=== PATIENT | female | born 1960 | race Native Hawaiian/Other Pacific Islander ===

== ENCOUNTER → 2017-10-17 | Outpatient (CLI) | payer OTHER ==
--- NOTE | 2017-10-17 12:29 | XR ---
EXAMINATION TYPE: XR chest 2V DATE OF EXAM: 10/17/2017 COMPARISON: NONE HISTORY: Chest pain TECHNIQUE: Frontal and lateral views of the chest are obtained. FINDINGS: There is no focal air space opacity, pleural effusion, or pneumothorax seen. The cardiac silhouette size is within normal limits. The osseous structures are intact. Minimal multilevel dege nerative changes of the thoracic spine are noted. IMPRESSION: No acute cardiopulmonary process.
--- NOTE | 2017-10-17 12:50 | XR ---
EXAMINATION TYPE: XR cervical spine comp DATE OF EXAM: 10/17/2017 TECHNIQUE: Frontal, lateral, oblique, swimmers, and open mouth view of the cervical spine are obtaine d. HISTORY: M542,R05 cervicalgia,cough COMPARISON: None FINDINGS: The cervical spine is visualized from C1 thru the top of C5 level, it is satisfactory in a lignment without evidence of acute fracture or dislocation. The pre-vertebral soft tissue appears wi thin normal limits. The C1-C2 articulation is within normal limits on the open mouth view. Mild mult ilevel degenerative disc disease is most pronounced at C4 through C6. There is at least mild neural f oraminal narrowing at C5-C6 on the right. Remainder of the neural foramen are radiographically patent . Straightening of the usual cervical lordosis is noted. IMPRESSION: 1. No acute fracture or dislocation is seen in the cervical spine. 2. Mild multilevel degenerative disc disease resulting in at least mild neural foraminal narrowing at C5-C6 on the right. 3. Straightening of the usual cervical lordosis that may relate to muscular spasm or patient position ing.
== END | disposition home or self-care (01) ==
LOC: RADXRYALE 11:23
PROVIDERS: ATTEND Internal Medicine
DX: M99.71 Connective tissue and disc stenosis of intervertebral foramina of cervical region (principal); M50.321 Other cervical disc degeneration at C4-C5 level; R05 Cough
CPT/HCPCS: 71046; 72050

== ENCOUNTER → 2017-11-20 | Outpatient (CLI) | payer OTHER ==
--- NOTE | 2017-11-22 08:23 | MM ---
Reason for exam: screening (asymptomatic). Last mammogram was performed 2 years and 1 month ago. History: Benign US left guided VAD of the left breast, December 30, 2008. Benign US left guided VAD of the left breast, December 30, 2008. Physical Findings: A clinical breast exam by your physician is recommended on an annual basis and results should be correlated with mammographic findings. MG Screening Mammo w CAD Bilateral CC and MLO view(s) were taken. Prior study comparison: October 22, 2015, bilateral MG screening mammo w CAD. June 30, 2010, bilateral digital screening mammogram. The breast tissue is heterogeneously dense. This may lower the sensitivity of mammography. Previous mammotome biopsy in the left breast x 2. There is chronic nodularity bilaterally. No significant changes when compared with prior studies. ASSESSMENT: Benign, BI-RAD 2 RECOMMENDATION: Routine screening mammogram of both breasts in 1 year.
== END | disposition home or self-care (01) ==
LOC: RADMAMWWP 11:15
PROVIDERS: ATTEND Internal Medicine
DX: Z12.31 Encounter for screening mammogram for malignant neoplasm of breast (principal)
CPT/HCPCS: 77067

== ENCOUNTER → 2017-12-20 | Outpatient (CLI) | payer OTHER ==
--- NOTE | 2017-12-20 21:35 | US ---
EXAMINATION TYPE: US pelvis complete transvag DATE OF EXAM: 12/20/2017 COMPARISON: None CLINICAL HISTORY: 57-year-old female N95.0 Postmenopausal bleeding. UNDERTAKER ASSISTANT x one month ago. Patient sta shruti her last menses was 1 year ago. TECHNIQUE: Transabdominal sonographic images of the pelvis were acquired. Transvaginal sonographic i mages were medically necessary to better assess the following anatomy: Uterus, endometrium and ovarie s Date of LMP: UNDERTAKER ASSISTANT, FINDINGS: EXAM MEASUREMENTS: Uterus: 8.9 x 5.3 x 4.4 cm Endometrial Stripe: 3.6 mm 1. Uterus: Anteverted. The myometrium is mildly heterogeneous. No dominant fibroid is seen. Cervic al nabothian cysts are demonstrated. 2. Endometrium: Difficult to clearly delineate but estimated at 3.6 mm. 3. Right Ovary: Obscured by overlying bowel gas both transabd and transvag 4. Left Ovary: Obscured by overlying bowel gas both transabd and transvag 5. Bilateral Adnexa: wnl 6. Posterior cul-de-sac: no free fluid IMPRESSION: 1. Technically difficult to delineate the endometrial stripe, estimated at 3.6 mm. 2. Neither ovary could be visualized. 3. No pelvic free fluid.
== END | disposition home or self-care (01) ==
LOC: RADUSWWP 12:18
PROVIDERS: ATTEND Internal Medicine
DX: N95.0 Postmenopausal bleeding (principal)
CPT/HCPCS: 76830; 76856

== ENCOUNTER → 2018-01-11 | Outpatient (CLI) | payer OTHER ==
--- NOTE | 2018-01-11 14:48 | XR ---
EXAMINATION TYPE: XR abdomen 1V DATE OF EXAM: 01/11/2018 1:00 PM CLINICAL HISTORY: Right flank pain for one month. History of nephrolithiasis. TECHNIQUE: Single supine KUB image of the abdomen is obtained. COMPARISON: None. FINDINGS: There is a mild levoscoliosis of the lumbar spine. Numerous phleboliths are seen within the pelvis. Probable artery 3 mm left renal calculus is seen. Renal shadows are partially obscured by ov erlying colonic bowel gas and stool. Scattered gas is seen in non-distended small bowel loops. Gas an d fecal material is seen in non-distended colon. Mild femoral acetabular arthropathy is present. IMPRESSION: Probable 3 mm left renal calculus. Renal shadows are partially obscured by overlying colo neo stool. No additional renal calculi are seen.
== END | disposition home or self-care (01) ==
LOC: RADXRYALE 12:49
PROVIDERS: ATTEND Internal Medicine
DX: N20.0 Calculus of kidney (principal)
CPT/HCPCS: 74018

== ENCOUNTER → 2018-01-24 | Outpatient (CLI) | payer OTHER ==
--- NOTE | 2018-01-24 14:16 | US ---
EXAMINATION TYPE: US kidneys/renal and bladder DATE OF EXAM: 01/24/2018 COMPARISON: NONE CLINICAL HISTORY: N20.0 Calculus of kidney. EXAM MEASUREMENTS: Right Kidney: 12.3 x 4.6 x 5.6 cm Left Kidney: 11.9 x 4.6 x 4.3cm Right Kidney: echogenic foci seen, possible stone(s) Left Kidney: No hydronephrosis or masses seen Bladder: wnl Bilateral Jets seen: Yes There is no evidence for hydronephrosis at this point in time. No masses are identified. The urinar y bladder is anechoic. Bilateral ureteral jets are seen. IMPRESSION: Suspect right-sided nonobstructing nephrolithiasis.
== END | disposition home or self-care (01) ==
LOC: RADUSWWP 13:32
PROVIDERS: ATTEND Internal Medicine
DX: N20.0 Calculus of kidney (principal)
CPT/HCPCS: 76770

== ENCOUNTER → 2018-02-13 | Outpatient (CLI) | payer OTHER ==
--- NOTE | 2018-02-13 11:32 | XR ---
EXAMINATION TYPE: XR foot complete LT DATE OF EXAM: 02/13/2018 CLINICAL HISTORY: pain TECHNIQUE: Frontal, lateral and oblique images of the left foot are obtained. COMPARISON: None. FINDINGS: There is no acute fracture/dislocation evident. The joint spaces appear within normal lee its. The overlying soft tissue appears unremarkable. Plantar calcaneal spur noted. IMPRESSION: There is no acute fracture or dislocation. ICD 10 NO FRACTURE, INITIAL EVALUATION
== END | disposition home or self-care (01) ==
LOC: RADXRYALE 10:55
PROVIDERS: ATTEND Internal Medicine
DX: M79.672 Pain in left foot (principal)

== ENCOUNTER → 2022-12-29 | Outpatient (CLI) | payer OTHER ==
--- NOTE | 2022-12-30 19:31 | MM ---
Reason for Exam: Screening (asymptomatic). Last mammogram was performed 5 year(s) and 1 month(s) ago. Patient History: Menarche at age 15. First Full-Term at age 19. Postmenopausal. 12/30/2008, Benign Core Biopsy on the left side. 12/30/2008, Benign Core Biopsy on the left side. Risk Values: Minerva 5 year model risk: 1.0%. NCI Lifetime model risk: 5.5%. Prior Study Comparison: 06/30/2010 Bilateral Screening Mammogram, [facility]. 10/22/2015 Bilateral Screening Mammogram, [facility]. 11/20/2017 Bilateral Screening Mammogram, [facility]. Tissue Density: The breast tissue is heterogeneously dense. This may lower the sensitivity of mammography. Findings: Analyzed By CAD. Coil clip upper outer quadrant left breast corresponding to previously biopsied nodularity. Additional ribbon clip inner left breast. Benign oil cyst calcifications are present on both sides. There is no suspicious group of microcalcifications or new suspicious mass in either breast. Overall Assessment: Benign, BI-RAD 2 Management: Screening Mammogram of both breasts in 1 year. . Patient should continue monthly self-breast exams. A clinical breast exam by your physician is recommended on an annual basis. This exam should not preclude additional follow-up of suspicious palpable abnormalities. Note on Minerva scores and lifetime risk: 1. A Minerva score greater than 3% is considered moderate risk. If this is the case, consider specialist referral to assess eligibility for a risk reducing agent. 2. If overall lifetime risk for the development of breast cancer is 20% or higher, the patient may qualify for future screening with alternating mammogram and breast MRI. Electronically signed and approved by: Bridger Mario M.D. Radiologist
== END | disposition home or self-care (01) ==
LOC: RADMAMWWP 13:29
PROVIDERS: ATTEND Family Medicine
DX: Z12.31 Encounter for screening mammogram for malignant neoplasm of breast (principal); Z78.0 Asymptomatic menopausal state
CPT/HCPCS: 77063; 77067

== ENCOUNTER → 2023-04-17 | Outpatient (CLI) | payer OTHER ==
--- NOTE | 2023-04-18 00:23 | MR ---
EXAMINATION TYPE: MR knee LT wo con DATE OF EXAM: 04/17/2023 COMPARISON: NONE HISTORY: Left knee pain and swelling since August 21, 2022. TECHNIQUE: Multiplanar, multisequence images of the knee is performed without IV contrast. FINDINGS: MEDIAL MENISCUS: Anterior horn is intact without tear. Increased signal with horizontal and oblique c omponent posterior horn appears to extend to inferior articular surface on coronal images LATERAL MENISCUS: Anterior and posterior horns are intact without tear. CRUCIATE LIGAMENTS: The anterior and posterior cruciate ligaments are intact and unremarkable. COLLATERAL LIGAMENTS: The medial collateral ligament and lateral collateral ligament complex are inta ct. Some increased signal and thickening of the distal aspect deep fibers of the medial collateral li gament. EXTENSOR MECHANISM: Visualized quadriceps and patellar tendons are intact. EFFUSION: Moderate-size suprapatellar joint effusion. POPLITEAL CYST: No popliteal/see cyst. TRICOMPARTMENT SPACES: Mild to moderate tricompartment joint space loss and spurring. CARTILAGE: Some cartilaginous loss posterior lateral aspect of the distal medial femoral condyle. BONE MARROW SIGNAL: Slight vague area of increased T2 signal involving the posterior lateral aspect o f the distal medial femoral condyle near sagittal image 22 and axial image 15. OTHER: No additional significant abnormality is appreciated. IMPRESSION: 1. At least intrasubstance but suspected full-thickness tear posterior horn of medial meniscus. 2. Deep distal MCL sprain injury presumed chronic. 3. Kasy-iy-puyyhzdd tricompartment degenerative changes most likely on basis of osteoarthritis as det artur above.
== END | disposition home or self-care (01) ==
LOC: RADMRIMAIN 07:54
PROVIDERS: ATTEND Family Medicine
DX: S83.242A Other tear of medial meniscus, current injury, left knee, initial encounter (principal); M17.12 Unilateral primary osteoarthritis, left knee

== ENCOUNTER 2023-04-28 10:09 | Day surgery (SDC) | payer OTHER ==
[2023-04-26 11:24] VITALS: BMI 38.7
[~2023-04-28 10:09] MED LIST: LACTATED RINGERS 1,000 ML IV SCH
[2023-04-28 11:29] VITALS: RESP 16; TEMP 97.8
[2023-04-28 11:34] LABS: Glucose,Whole Blood 91 mg/dL (70-110)
[2023-04-28] MEDS ORDERED: PROPOFOL 10 MG/ML 20 ML VIAL IV ONE (12:18)
--- NOTE | 2023-04-28 12:35 | P.PCN ---
Date of Procedure: 04/28/23 Procedure(s) Performed: BRIEF HISTORY: Patient is a 63-year-old pleasant female scheduled for an elective colonoscopy as a part of screening for colon cancer. PROCEDURE PERFORMED: Colonoscopy. PREOPERATIVE DIAGNOSIS: Screening for colon cancer. IV sedation per Anesthesia. PROCEDURE: After informed consent was obtained, the patient, was brought into the endoscopy unit. IV sedation was administered by Anesthesia under continuous monitoring. Digital rectal examination was normal. Initially the Olympus CF-160 flexible video colonoscope was then inserted in the rectum, gradually advanced into the cecum without any difficulty. Careful examination was performed as the scope was gradually being withdrawn. Ileocecal valve and the appendiceal orifice were visualized and appeared normal. Prep was excellent. Mucosa of the cecum, ascending colon, transverse colon, descending colon, sigmoid colon, and rectum appeared normal. Scattered sigmoid diverticulosis. Retroflexion was performed in the rectum and small internal hemorrhoids. were seen. The patient tolerated the procedure well. IMPRESSION: Normal-appearing colon from rectum to cecum with no evidence of colorectal neoplasia Scattered sigmoid diverticula Small internal hemorrhoids RECOMMENDATIONS: Findings of this examination were discussed with the patient as well as family. She was advised to have a repeat screening colonoscopy in 10 years..
[2023-04-28 12:53] VITALS: BP 117/79; PULSE 77
== END 2023-04-28 13:14 | disposition home or self-care (01) ==
LOC: ORWHC2ENDO 10:09
PROVIDERS: ATTEND Internal Medicine Gastroenterology
DX: Z12.11 Encounter for screening for malignant neoplasm of colon (principal); K57.30 Diverticulosis of large intestine without perforation or abscess without bleeding; K64.8 Other hemorrhoids; E78.5 Hyperlipidemia, unspecified; G47.33 Obstructive sleep apnea (adult) (pediatric); E11.9 Type 2 diabetes mellitus without complications; F17.210 Nicotine dependence, cigarettes, uncomplicated; Z79.85 Long-term (current) use of injectable non-insulin antidiabetic drugs; Z79.84 Long term (current) use of oral hypoglycemic drugs; Z79.899 Other long term (current) drug therapy; Z98.890 Other specified postprocedural states
CPT/HCPCS: 45378; J2704

== ENCOUNTER → 2023-06-15 | Outpatient (CLI) | payer OTHER | LOC: 3 N SLEEP 10:52 | PROVIDERS: ATTEND Internal Medicine | DX: G47.33 Obstructive sleep apnea (adult) (pediatric) (principal); E66.9 Obesity, unspecified; I10 Essential (primary) hypertension; E11.9 Type 2 diabetes mellitus without complications; K21.9 Gastro-esophageal reflux disease without esophagitis; E78.5 Hyperlipidemia, unspecified; F17.200 Nicotine dependence, unspecified, uncomplicated; Z68.39 Body mass index [BMI] 39.0-39.9, adult; Z98.51 Tubal ligation status; Z79.899 Other long term (current) drug therapy; Z79.85 Long-term (current) use of injectable non-insulin antidiabetic drugs; Z79.84 Long term (current) use of oral hypoglycemic drugs | CPT/HCPCS: 99211 ==

== ENCOUNTER → 2023-06-15 | Outpatient (CLI) | payer OTHER ==
--- NOTE | 2023-06-15 11:51 | P.SLEEP ---
History of Present Illness DATE: 06/15/2023 CONSULTATION/NEW PATIENT EVALUATION HISTORY OF PRESENT ILLNESS/SLEEP-WAKE EVALUATION: 63-year-old lady had been evaluated in the sleep center for possible obstructive sleep apnea hypopnea syndrome. SLEEP SCHEDULE: Usually sleep schedule from 10:30 PM to 5 AM on weekdays from 11 PM to 6 AM on weekend. FALLING ASLEEP: Patient may have difficulties with falling asleep. DURING SLEEP: Patient has loud snoring, awakenings from sleep 2 times with nocturia, choking and grinding teeth. No history of hypnogogical hallucinations, sleep paralysis, or cataplexy. DURING THE DAY/WAKE STATE: In the morning patient wake up tired, has difficulties to pay attention, has problems with memory, concentration. [place] sleepiness scale is 4. The patient doesn't take naps. PAST MEDICAL HISTORY: Hypertension, diabetes mellitus, acid reflux, hyperlipidemia. PAST SURGICAL HISTORY: Tubal ligation. MEDICATIONS: Lisinopril 2.5 mg once a day, meloxicam 15 mg once a day, metformin. SOCIAL HISTORY: Positive for smoking for about 40 pack years quit 4 years ago, alcohol consumption occasional. FAMILY HISTORY: Hypertension, heart problems, asthma, sleep apnea, thyroid problems. REVIEW OF SYSTEMS: Loud snoring, multiple awakenings from sleep with episodes of choking. No fevers. No double vision. No recent chest pain. No shortness of breath. No abdominal pain. No bleeding episodes. No blood in urine. No seizure episodes. PHYSICAL EXAMINATION: GENERAL: A pleasant patient without any distress. VITAL SIGNS: BP 116/71 , HR 86 , RR 16 , weight 209.8 pounds, height 5 foot 1-1/3 inches, body mass index 39.1, temperature 98.8, oxygen saturation at room air 96% . HEENT: PERRLA, EOMI. Evaluation of oropharynx showed tongue protrudes midline, low position of soft palate Mallampati 4. NECK: Supple. No JVD. Thyroid is not palpable. 17 inches in circumference. LUNGS: Clear to percussion and to auscultation. Good air exchange. No wheezing or rhonchi. HEART: S1, S2 regular. No murmurs, gallops or rubs. ABDOMEN: Soft and nontender. Bowel sounds are present. No organomegaly appreciated. Slightly obese. EXTREMITIES: No clubbing or cyanosis. CRANE HOIST OR LIFT OPERATOR: Awake, alert, and oriented x3. Cranial nerves 2 to 7 intact. There is no fasciculation or atrophy noted. No focal deficits observed. ASSESSMENT: 1. Loud snoring, multiple awakenings from sleep with episodes of choking, extremely low position of soft palate Mallampati 4, wide neck 17 inches in circumference. Obstructive sleep apnea hypopnea syndrome. 2. Obesity, BMI 39.1. 3. Hypertension. 4. Diabetes mellitus. 5 acid reflux. 6 . Hyperlipidemia. 7. Status post tubal ligation. PLAN: 1. Polysomnography for evaluation of patient's breathing during sleep. 2. CPAP/BiPAP titration if sleep study confirms obstructive sleep apnea- hypopnea syndrome. 3. Preferable position during sleep on the side. 4. No driving if patient feels any sleepiness. Patient is aware of civil and criminal liability for unsafe driving. 5. Sleep hygiene with regular sleep time for at least 7.5-8 hours. 6. Watching and losing weight. Thank you very much for referring this patient for consultation. Sincerely, Roldan Jones MD, PhD, FAASM. Diplomat of [place] [employer], Sleep Medicine Board by [employer] Corporate Manager of [facility] [place] Past Medical History Past Medical History: No Reported History History of Any Multi-Drug Resistant Organisms: None Reported Past Surgical History: No Surgical Hx Reported Past Psychological History: No Psychological Hx Reported Past Alcohol Use History: Occasional Past Drug Use History: None Reported Medications and Allergies Home Medications Medication Instructions Recorded Confirmed Type Atorvastatin [Lipitor] 10 mg PO DAILY 04/26/23 04/26/23 History Diclofenac Sodium Gel [Voltaren 100 gm TOPICAL BID 04/26/23 04/26/23 History Gel] Dulaglutide [Trulicity] 0.75 mg SQ WEEKLY 04/26/23 04/26/23 History Fluticasone Nasal [place] [Flonase 2 spray EA NOSTRIL DAILY 04/26/23 04/26/23 History Nasal [place]] L.acidoph,Paracasei, B.lactis 1 each PO DAILY 04/26/23 04/26/23 History [Probiotic] Magnesium 250 mg PO DAILY 04/26/23 04/26/23 History Meloxicam [Mobic] 15 mg PO DAILY 04/26/23 04/26/23 History Terbinafine [LamISIL] 250 mg PO HS 04/26/23 04/26/23 History lisinopriL [Zestril] 2.5 mg PO DAILY 04/26/23 04/26/23 History metFORMIN HCL 500 mg PO DAILY 04/26/23 04/26/23 History Allergies Allergy/AdvReac Type Severity Reaction Status Date / Time No Known Allergies Allergy Verified 04/26/23 11:16 Sleep Note - Sleep Note Sleep Note: Temperature: Pulse Rate: Respiratory Rate: Blood Pressure: SpO2: Height: Weight: BMI: Neck Circumference:
== END ==
LOC: 3 N SLEEP 10:42
PROVIDERS: ATTEND Internal Medicine
DX: G47.33 Obstructive sleep apnea (adult) (pediatric) (principal); E66.9 Obesity, unspecified; I10 Essential (primary) hypertension; E11.9 Type 2 diabetes mellitus without complications; K21.9 Gastro-esophageal reflux disease without esophagitis; E78.5 Hyperlipidemia, unspecified; Z68.39 Body mass index [BMI] 39.0-39.9, adult; Z98.51 Tubal ligation status; Z87.891 Personal history of nicotine dependence; Z79.899 Other long term (current) drug therapy; Z79.84 Long term (current) use of oral hypoglycemic drugs; Z79.85 Long-term (current) use of injectable non-insulin antidiabetic drugs
CPT/HCPCS: 99211

== ENCOUNTER 2023-08-01 19:40 | Outpatient (CLI) | payer OTHER ==
--- NOTE | 2023-08-07 17:09 | P.PCN ---
Description of Procedure: POLYSOMNOGRAPHY REPORT PROCEDURE(S)/DATE(S): Polysomnography 08/01/2023 CLINICAL: Patient has been seen in the sleep center for evaluation of obstructive sleep apnea-hypopnea syndrome. Please see my consultation. Sleep study has been done for evaluation of patient breathing during the sleep. PROCEDURE: The standard montage for clinical polysomnography included the electroencephalogram, the electrooculogram, the mentalis surface electromyography and Lead II cardiography. The respiratory battery consisted of measurements of nasal/buccal air flow, pressure transducer measurements from nose, thoracic and/or abdominal effort and intercostal surface electromyography. Video monitoring has been done to check for any parasomnia events. Nocturnal oxyhemoglobin saturations were obtained by finger oximetry. Step-garcia titration with positive airway pressure was utilized to control the respiratory events, if necessary. RESULTS: During the diagnostic sleep study sleep efficiency was normal 90.4 %. Latency to sleep onset was normal 9.5 min. Sleep architecture showed stage NI was slightly short 4.5 %, Delta sleep was normal 11.6 %, REM sleep was slightly short 15.1 %. Respiratory channel showed 86 obstructive apneas, 0 mixed apneas, 0 central apneas, 65 hypopneas with lowest oxygen level 57 %. Total apnea hypopnea index was 24.7. Heart rate was in the range between 71 and 85, average 76 by computer calculation. EMG showed 1.6 periodic limb movements per hour. IMPRESSIONS: 1. Moderate obstructive sleep apnea hypopnea syndrome. 2. No significant periodic limb movements have been documented. Please see other impressions from consultation PLAN: 1. The patient will have PAP titration for correction of respiratory abnormalities during the sleep. 2. Losing weight program. 3. Sleep hygiene with regular time in bed for at least 7-1/2 hours. 4. No driving if feeling sleepiness. Thank you very much for allowing me to participate in the management of your patient. Sincerely, Roldan Jones MD, PhD, FAASM. Diplomat of [place] [employer], Sleep Medicine Board by [place] [employer] Cost Control Analyst of [facility] [place]
== END 2023-08-02 06:10 | disposition home or self-care (01) ==
LOC: 3 N SLEEP 19:40
PROVIDERS: ATTEND Internal Medicine
DX: G47.33 Obstructive sleep apnea (adult) (pediatric) (principal); G47.61 Periodic limb movement disorder; Z99.89 Dependence on other enabling machines and devices; F17.200 Nicotine dependence, unspecified, uncomplicated
CPT/HCPCS: 95810

== ENCOUNTER 2023-09-11 19:18 | Outpatient (CLI) | payer OTHER ==
--- NOTE | 2023-09-13 11:26 | P.PCN ---
Description of Procedure: CLINICAL: Titration with positive air pressure has been done for correction of respiratory abnormalities during sleep. DESCRIPTION OF PROCEDURE: The standard montage for clinical polysomnography included the electroencephalogram, the electrocardiogram, the mentalis surface electromyography and Lead II cardiography. The respiratory battery consisted of measurements of nasal /buccal air flow, pressure transducer measurements from the nose, thoracic and /or abdominal effort and intercostal surface electromyography. Video monitoring has been done to check for any parasomnia events. Nocturnal oxyhemoglobin saturations were obtained by finger oximetry. Step-garcia titration with positive airway pressure was utilized to control respiratory events. Raw data of sleep recording has been reviewed and is adequate. RESULTS: Sleep efficiency was practically normal 87.4 %. Latency to sleep onset was normal 11.0 minutes.]. Sleep architecture showed stage N1 was short 2.3 %, Delta sleep was normal 6.7 %, REM sleep was close to normal 18.9 %. Heart rate was minimum 75 BPM, maximum 86 BPM, average 80 BPM. EMG showed 9.4 periodic limb movements per hour with 0.5 micriarousals per hour. PAP titration have been done with CPAP up to the pressure 12 cm H2O. The best results were at the pressure 11 cm H2O. Apnea hypopnea index reduced to 1.8. IMPRESSION: 1. Obstructive sleep apnea hypopnea syndrome mostly on controle with PAP treatment. 2. No significant periodic limb movements have been documented. Please see other impressions from consultation. PLAN: 1. The patient will have treatment with positive air pressure equipment with the level of pressure AutoPAP 5-12 cm H2O and should use it every night for the whole night. 2. Watching weight. 3. Sleep hygiene with regular time in bed for at least 8 hours. 4. No driving if feeling any sleepiness. 5. I will see the patient for follow up visit to explain the results of the test, recommendations, check compliance with treatment and make any necessary adjustment related to mask fitting, pressure and humidification. Thank you very much for allowing me to participate in the management of your patient. Sincerely, Roldan Jones MD, PhD, FAASM Diplomat of [place] [employer] [employer] Sleep Medicine Board of [place] [employer] Brim Curler of [facility] [place] cc: Naa Borges M.D.
== END 2023-09-12 05:50 | disposition home or self-care (01) ==
LOC: 3 N SLEEP 19:18
PROVIDERS: ATTEND Internal Medicine
DX: G47.33 Obstructive sleep apnea (adult) (pediatric) (principal); G47.36 Sleep related hypoventilation in conditions classified elsewhere; F17.200 Nicotine dependence, unspecified, uncomplicated
CPT/HCPCS: 95811

== ENCOUNTER → 2023-11-29 | Outpatient (CLI) | payer OTHER ==
[2023-11-29 12:23] VITALS: BP 121/79; PULSE 112; RESP 16; TEMP 98
--- NOTE | 2023-11-29 13:27 | P.PN ---
Subjective DATE: 11/29/2023 FOLLOW UP VISIT. Patient returned to sleep center for follow-up visit. Sleep study showed that patient has moderate obstructive sleep apnea hypopnea syndrome with apnea- hypopnea index 24.7 and oxygen saturation to 57%. Patient was recommended to start treatment with CPAP, but for different reason she did not received CPAP unit. Patient continued to have problems with her sleep, awakenings from sleep and snoring [place] sleepiness scale is 4. MEDICATIONS:1. Ozempic 2. Claritin During physical exam: GENERAL: A pleasant patient without any distress. VITAL SIGNS: Please see below. HEENT: PERRLA, EOMI. NECK: Supple. No JVD. LUNGS: Clear to percussion and to auscultation. Good air exchange. No wheezing or rhonchi. HEART: S1, S2 regular. ABDOMEN: Soft and nontender. EXTREMITIES: No clubbing or cyanosis. BURNER TENDER: Awake, alert, and oriented x3. No focal deficit. Impressions: 1. Obstructive sleep apnea hypopnea syndrome, apnea hypopnea index 24.7 with oxygen saturation to 57%. 2. Hypertension. 3. H/o Diabetes mellitus. 4. Obesity. 5. Acid reflux. 6. Hyperlipidemia. 7. Status post tubal ligation. Plan: 1. Patient will be started on treatment with CPAP and should use equipment every night for the whole night. 2. Sleep hygiene with regular time in bed for at least 8 hours. 3. I will see patient for follow-up visit to evaluate clinical response on treatment, compliance with treatment and [place] adjustments related to mask fitting pressure and humidification 4. Precautions related to driving. No driving if feel any sleepiness. Patient is aware about civil and criminal liability for unsafe driving, promised to follow recommendations. 5. Follow up visit in 1-3 months after patient will start treatment with CPAP. Thank you very much for allowing me to participate in the management of your patient. Roldan Jones MD, PhD, FAASM. Diplomat of [place] [employer], Sleep Medicine Board by [place] [employer] Matrix Inspector of [facility] [place] Objective - Vital Signs Vital signs: Vital Signs Temp 98.0 F 11/29/23 11:50 Pulse 112 H 11/29/23 11:50 Resp 16 11/29/23 11:50 BP 121/79 11/29/23 11:50 Pulse Ox 96 11/29/23 11:50 FiO2
== END ==
LOC: 3 N SLEEP 11:26
PROVIDERS: ATTEND Internal Medicine
DX: G47.33 Obstructive sleep apnea (adult) (pediatric) (principal); I10 Essential (primary) hypertension; E11.9 Type 2 diabetes mellitus without complications; E66.9 Obesity, unspecified; E78.5 Hyperlipidemia, unspecified; K21.9 Gastro-esophageal reflux disease without esophagitis; F17.200 Nicotine dependence, unspecified, uncomplicated; Z98.51 Tubal ligation status; Z79.84 Long term (current) use of oral hypoglycemic drugs; Z79.899 Other long term (current) drug therapy
CPT/HCPCS: 99212

== ENCOUNTER → 2024-01-02 | Outpatient (CLI) | payer OTHER ==
--- NOTE | 2024-01-02 20:05 | MM ---
Reason for Exam: Screening (asymptomatic). Last screening mammogram was performed 12 month(s) ago. Patient History: Menarche at age 15. First Full-Term at age 19. Postmenopausal. 12/30/2008, Benign Core Biopsy on the left side. 12/30/2008, Benign Core Biopsy on the left side. Risk Values: Minerva 5 year model risk: 1.0%. NCI Lifetime model risk: 5.3%. Prior Study Comparison: 10/22/2015 Bilateral Screening Mammogram, [facility]. 11/20/2017 Bilateral Screening Mammogram, [facility]. 12/29/2022 Bilateral MG 3D screening mammo w/cad, [facility]. Tissue Density: The breasts are heterogeneously dense, which may obscure small masses. Findings: Analyzed By CAD. There are increasing areas of nodularity in both the inner and outer aspect of the left breast middle depth located superiorly on the MLO view. Some coarse lordosis calcifications are redemonstrated on the left and a few small oil cyst calcifications on the right. Benign vascular calcifications on the right. 2 microvascular clips left breast from prior biopsies. Overall Assessment: Incomplete: need additional imaging evaluation, BI-RAD 0 Management: Special View Mammogram of the left breast. Diagnostic Breast Ultrasound of the left breast. . [facility] will attempt to contact patient to return for supplemental views and ultrasound if indicated. Electronically signed and approved by: Bridger Mario M.D. Radiologist
--- NOTE | 2024-01-02 20:44 | BD ---
EXAMINATION TYPE: Axial Bone Density DATE OF EXAM: 01/02/2024 CLINICAL HISTORY: 63 years old Female. ICD-10 CODE: Z12.31 SCR MAMMO Z78.0 AYSMPTOMATIC MENOPAUSAL S TA Height: 60.5 Weight: 204 FRAX RISK QUESTIONS: Family History (Parent hip fracture): yes, mother 3. Menopause before 45: no at 58 yrs old Current Tobacco Use: yes RISK FACTORS HISTORY OF: type 2 diabetic, hypertension, cholesterol MEDICATIONS: bp meds, cholesterol meds, alive vitamins, with calcium and vit d, metformin and ozempic EXAM MEASUREMENTS: Bone mineral densitometry was performed using the [employer] System. Bone mineral density as measured about the Lumbar spine is: ----- L1-L4(G/cm2): 1.159 T Score Values are as follows: ----- L1: 0.4 ----- L2: -0.5 ----- L3: -0.7 ----- L4: 0.1 ----- L1-L4: -0.2 Z Score Values are as follows: ----- L1: 0.8 ----- L2: -0.1 ----- L3: -0.3 ----- L4: 0.5 ----- L1-L4: 0.2 Bone mineral density is her first scan, baseline. Bone mineral density about the R hip (g/cm2): 1.157 Bone mineral density about the L hip (g/cm2): 1.174 T Score values are as follows: -----R Neck: -0.4 -----L Neck: -0.6 -----R Total: 1.2 -----L Total: 1.3 Z Score values are as follows: -----R Neck: 0.3 -----L Neck: 0.1 -----R Total: 1.5 -----L Total: 1.7 Bone mineral density is a baseline study. FRAX%s: The graph provided illustrates a 6.9% chance for a major osteoporotic fx and a 0.3% chance fo r the hips probability for fx in 10 years time. IMPRESSION: Normal (Values between +1 and -1 indicate normal bone mass). Consider repeating this study in 5 year s or sooner if there is some new clinical indication. NOTE: T-SCORE=SD OF THE YOUNG ADULT MEAN.
== END | disposition home or self-care (01) ==
LOC: RADMAMWWP 08:55
PROVIDERS: ATTEND Family Medicine
DX: Z12.31 Encounter for screening mammogram for malignant neoplasm of breast (principal); Z78.0 Asymptomatic menopausal state
CPT/HCPCS: 77063; 77067; 77080

== ENCOUNTER → 2024-01-05 | Outpatient (CLI) | payer OTHER ==
--- NOTE | 2024-01-05 12:56 | USB ---
Reason for Exam: Additional evaluation requested from abnormal screening. Patient History: Menarche at age 15. First Full-Term at age 19. Postmenopausal. 12/30/2008, Benign Core Biopsy on the left side. 12/30/2008, Benign Core Biopsy on the left side. Risk Values: Minerva 5 year model risk: 1.0%. NCI Lifetime model risk: 5.3%. Prior Study Comparison: 07/03/2009 Left Diagnostic Ultrasound, [facility]. 11/20/2017 Bilateral Screening Mammogram, [facility]. 12/29/2022 Bilateral MG 3D screening mammo w/cad, [facility]. 01/02/2024 Bilateral MG 3D screening mammo w/cad, [facility]. Findings: The whole breast of the left breast, the axilla of the left breast and the retroareolar of the left breast were scanned. A complete US of all four quadrants of the breast, axilla, and retro-areolar region were reviewed. * At the 1:00 position, 4 cm from the nipple, there is a benign 1.6 cm cyst. * At 2:00 position, 5 cm from the nipple, there is a benign 7 mm cyst. * At the 2:00 position, 6 cm from the nipple, there is the appearance of a intramammary lymph node measuring 7 mm. * At the 5:00 position, 3 cm from the nipple, tiny benign 2 mm cyst. * At the 10:00 position, 7 cm from the nipple, there is a benign 7 mm cyst. 6 month follow-up for the following 6 areas: * At the 2:00 position, 5 cm from the nipple, 2 adjacent circumscribed hypoechoic rounded masses are present, largest measuring 1.2 x 1.1 x 0.9 cm. This may correspond to a previous biopsy we note a clip on patient's mammogram. Adjacent similar 6 x 5 mm nodule. Six-month follow-up for both of these areas. * At the 11:00 position, 2 cm from the nipple, there is a hypoechoic lesion with internal density measuring 7 x 6 x 5 mm. Unclear if this represents a previously biopsied lesion corresponding to a ribbon clip on mammogram. 6 month follow-up to reassess. * At the 11:00 position, 4 cm from the nipple, there is a benign 5 mm cyst. * In the subareolar region, there is a circumscribed oval hypoechoic lesion measuring 9 x 9 byr 5 mm. Six-month follow-up recommended. * At the 12:00 position, 2 cm from the nipple, there is a vague hypoechoic lesion measuring 6 x 5 x 4 mm. Six-month follow-up recommended. Overall Assessment: Probably benign, BI-RAD 3 Management: Diagnostic Breast Ultrasound of the left breast in 6 months. A clinical breast exam by your physician is recommended on an annual basis and results should be correlated with mammographic findings. This exam should not preclude additional follow-up of suspicious palpable abnormalities. Results were given to the patient verbally at the time of exam. Electronically signed and approved by: Bridger Mario M.D. Radiologist
--- NOTE | 2024-01-05 20:36 | MM ---
Reason for Exam: Additional evaluation requested from abnormal screening. Last screening mammogram was performed less than 1 month ago. Patient History: Menarche at age 15. First Full-Term at age 19. Postmenopausal. 12/30/2008, Benign Core Biopsy on the left side. 12/30/2008, Benign Core Biopsy on the left side. Risk Values: Minerva 5 year model risk: 1.0%. NCI Lifetime model risk: 5.3%. Prior Study Comparison: 11/20/2017 Bilateral Screening Mammogram, [facility]. 12/29/2022 Bilateral MG 3D screening mammo w/cad, [facility]. 01/02/2024 Bilateral MG 3D screening mammo w/cad, [facility]. Tissue Density: Left: The breasts are heterogeneously dense, which may obscure small masses. Findings: Analyzed By CAD. 2 microclips related to prior biopsies. Persisting bilateral areas of nodularity for which further ultrasound evaluation is recommended. Overall Assessment: Incomplete: need additional imaging evaluation, BI-RAD 0 Management: Diagnostic Breast Ultrasound of the left breast. Electronically signed and approved by: Bridger Mario M.D. Radiologist
== END | disposition home or self-care (01) ==
LOC: RADMAMWWP 10:04
PROVIDERS: ATTEND Family Medicine
DX: R92.332 Mammographic heterogeneous density, left breast (principal); Z78.0 Asymptomatic menopausal state
CPT/HCPCS: 77065; 76641; G0279; 77061

== ENCOUNTER → 2024-08-02 | Outpatient (CLI) | payer OTHER ==
--- NOTE | 2024-08-27 14:52 | USB ---
Reason for Exam: Follow-up at short interval from prior study. Patient History: Menarche at age 15. First Full-Term at age 19. Postmenopausal. 12/30/2008, Benign Core Biopsy on the left side. 12/30/2008, Benign Core Biopsy on the left side. Risk Values: Minerva 5 year model risk: 1.1%. NCI Lifetime model risk: 5.2%. Technique: Method: Targeted. Prior Study Comparison: 12/29/2022 Bilateral MG 3D screening mammo w/cad, [facility]. 01/02/2024 Bilateral MG 3D screening mammo w/cad, [facility]. 01/05/2024 Left MG 3D work up w/cad , [facility]. Findings: The upper section of the breast of the left breast, the axilla of the left breast and the retroareolar of the left breast were scanned. 1. 0.7 x 0.9 x 0.5 cm hypoechoic area 1:00 position 2 cm from nipple. This is an echogenic focus within the. 2. There is a 0.5 x 0.3 x 0.5 cm hypoechoic area 12:00 position 2 cm the nipple this was present previously. 3. There is a 0.7 x 0.4 x 0.6 cm lymph node with fatty hilum 2:00 position 6 cm from the nipple. 4. At the 2:00 position 6 cm from nipple there is a 0.7 x 0.4 isoechoic structure. There is an adjacent hypoechoic area present previously currently measuring 1.1 x 0.8 cm. 5. There is a this is 1.0 x 1.1 x 0.5 cm isoechoic nodule within the subareolar left breast. This was present previously. Overall Assessment: Benign, BI-RAD 2 Management: Screening Mammogram of both breasts in 6 months. A clinical breast exam by your physician is recommended on an annual basis and results should be correlated with mammographic findings. This exam should not preclude additional follow-up of suspicious palpable abnormalities. Results were given to the patient verbally at the time of exam. [facility], , 08/02/2024 2:17 PM. Electronically signed and approved by: Brent Henson D.O. Radiologis
== END | disposition home or self-care (01) ==
LOC: RADUSWWP 13:39
PROVIDERS: ATTEND Family Medicine
DX: Z53.9 Procedure and treatment not carried out, unspecified reason (principal)